=== PATIENT | female | born 1960 | race Caucasian/White ===

== ENCOUNTER 2023-02-18 08:00 | Day surgery (SDC) | payer OTHER, SELFPAY ==
--- NOTE | 2023-02-18 | PATH_ITS ---
[facility] Accession Number: [id number] No. of containers..01 Tissue . 01 Material submitted: . colon - TRANSVERSE COLON BIOPSY . 01 Diagnosis: Tranverse Colon, Biopsy: Tubular adenoma. [facility] 02/20/2023 1118 Local . 01 Electronically signed: . Nela Cheema MD, Pathologist NPI- [id number] . 01 Gross description: . TRANSVERSE COLON BIOPSY: Received in formalin is 1 fragment(s) of barrientos, soft tissue measuring 0.2 x 0.2 x 0.2 cm submitted entirely in 1 cassette(s) /ROLAN 02/19/2023 1925 Local . 01 Pathologist provided ICD-10: D12.3 . 01 CPT . 694623 Specimen Comment: A courtesy copy of this report has been sent to [phone] Performed at: 01 [facility] [address] [place] [address], [place], [place] [id number] MD Sav Sharma MD Phone: [phone]
[2023-02-18 08:52] VITALS: BP 120/71; PULSE 83; RESP 16; TEMP 36.4; O2SAT 99; BMI 30.4
[2023-02-18] MEDS: LACTATED RINGERS 1,000 ML 42 ML IV (09:02)
--- NOTE | 2023-02-18 09:08 | PM.HP.1 ---
History of Present Illness History of Present Illness Date Patient Seen: 02/18/23 Time Patient Seen: 09:08 Chief complaint: SDC Narrative: Positive Cologuard. No further upper symptoms since going on keto diet. Patient History Medical History Fibromyalgia Hypertension Hypothyroid Family & Social History Social History: household members spouse Tobacco & Substance use: Smoking Status Never smoker alcohol intake former Substance Use Type does not use Meds Home Medications and Allergies Home Medications Medication Instructions Recorded Confirmed Type levothyroxine 13 mcg capsule 13 mcg PO DAILY 02/18/23 02/18/23 History lisinopril 10 mg PO DAILY 02/18/23 02/18/23 History metformin 500 mg tablet 500 mg PO DAILY 02/18/23 02/18/23 History Allergies Allergy/AdvReac Type Severity Reaction Status Date / Time Penicillins AdvReac Mild Rash Verified 02/18/23 08:30 Review of Systems Review of Systems ROS: Yes All systems reviewed with the patient and are negative except as otherwise documented Exam Vital Signs (past 8 hours): - 02/18/23 08:52 Temperature 97.6 F Pulse Rate 83 Respiratory Rate 16 Blood Pressure 120/71 Pulse Oximetry 99 Oxygen Delivery Method Room Air Oxygen Delivery Method Room Air Const General: cooperative HENMT Head: normal to inspection Eyes General: appearance normal, both eyes and all related structures Neck Neck: normal visual inspection Chest Chest: normal inspection of the chest Resp Effort & Inspection: normal respiratory effort Cardio Rate: regular rate GI Inspection: normal to inspection Skin General: no rashes or lesions noted Neuro General: patient alert and patient awake Extrem General: normal to inspection and no pedal edema Psych Appearance: grossly normal Assessment & Plan Assessment & Plan narrative: 62-year-old with a positive Cologuard. Colonoscopy is pursued today.
--- NOTE | 2023-02-18 09:09 | PM.PREOP ---
Pre-operative Note Interval Note History & Physical reviewed/Exam performed by Physician: Yes Changes to H&P: No ASA Class (for procedural sedation): II
--- NOTE | 2023-02-18 10:03 | PM.OP.COLON ---
Operative Date/Time/Diagnoses Date of procedure: 02/18/23 Time of procedure: 10:04 Pre-op diagnosis: Positive Cologuard Post-op diagnosis: same Procedure & Clinicians Study performed: Colonoscopy with cold forceps polypectomy Same procedure as scheduled: Yes Indications: Positive Cologuard Surgeon: Ankur Rodriguez Procedure Notes SCOAP/Timeout: Done Procedure in detail: After the risks and benefits were explained, written and verbal informed consent was obtained. The patient was brought into the procedure room and placed into the left lateral decubitus position. Please see anesthesia notes for sedation details. Digital rectal examination was accomplished. The scope was introduced into the patient and advanced under direct visualization to the cecum as identified by the appendiceal orifice and ileocecal valve. The scope was slowly withdrawn to carefully examine the mucosa for any defects or lesions. Comprehensive imaging was accomplished throughout the rectum including the dentate line. The colon was decompressed, the scope was then removed from the patient who tolerated the procedure well. Adult colonoscope Bowel prep adequate Scope withdrawal time: 9 minutes Sedation minutes: 15 Complications: none Impression: There was a very diminutive polyp in the proximal transverse colon removed with cold forceps. No additional mucosal pathology was appreciated throughout. The terminal ileum was interrogated and appeared normal. Grade 1 to grade 2 internal hemorrhoids were noted on direct views. Endoscopic diagnosis 1. Diminutive colon polyp 2. Grade 1 to grade 2 hemorrhoids Post-procedure Plan for aftercare: 1. Await histopathology 2. If this polyp is returned with adenomatous features, repeat colonoscopy will be suggested for 7 years time. Disposition: PACU
[2023-02-18 10:07] VITALS: BP 102/53; PULSE 87; RESP 20; TEMP 36.4; O2SAT 100
[2023-02-18 10:12] VITALS: BP 110/69; PULSE 73; RESP 14; TEMP 36.4; O2SAT 100
[2023-02-18 10:17] VITALS: BP 103/64; PULSE 72; RESP 13; TEMP 36.2; O2SAT 100
== END 2023-02-18 10:35 | disposition home or self-care (01) ==
PROVIDERS: PCP Physician Assistant; Referring Provider Internal Medicine Gastroenterology; Visit Provider Internal Medicine Gastroenterology
PROC: 0DJD8ZZ Inspection of Lower Intestinal Tract, Via Natural or Artificial Opening Endoscopic (ICD-10-PCS; CPT 45378; principal; 2023-02-18 09:30)
DX: R19.5 Other fecal abnormalities (principal); Z12.11 Encounter for screening for malignant neoplasm of colon; K64.0 First degree hemorrhoids; D12.3 Benign neoplasm of transverse colon
CPT/HCPCS: 45380; J2704

== ENCOUNTER → 2024-04-24 12:24 | Outpatient (CLI) | payer OTHER, MEDICAID, SELFPAY | LOC: RESP 12:28 | PROVIDERS: PCP Nurse Practitioner Family; Referring Provider Nurse Practitioner Family; Visit Provider Nurse Practitioner Family | DX: Z01.818 Encounter for other preprocedural examination (principal) | CPT/HCPCS: 93005 ==

== ENCOUNTER → 2024-04-27 10:57 | Outpatient (CLI) | payer OTHER, MEDICAID, SELFPAY ==
[2024-04-27 12:19] LABS: Add Manual Diff / Slide Review NO; Basophils Absolute Auto 100 /uL (0-100); Basophils Percent Auto 0.9 % (0-2); Eosinophils Absolute Auto 200 /uL (0-450); Eosinophils Percent Auto 2.6 % (2-4); Hematocrit 35.2 % (36-46); Hemoglobin 11.9 g/dL (12.0-16.0); Lymphocytes Absolute Auto 1500 /uL (1100-4500); Lymphocytes Percent Auto 22.7 % (25-40); Mean Corpuscular HGB Conc 33.9 % (30-36); Mean Corpuscular Hemoglobin 30.2 PG (26-34); Mean Corpuscular Volume 89.1 fL (80-100); Monocytes Absolute Auto 400 /uL (0-900); Monocytes Percent Auto 6.4 % (3-14); Neutrophils Absolute Auto 4400 /uL (1500-7000); Neutrophils Percent Auto 67.4 % (50-75); Platelet Count 178 X10^3/uL (150-400); Red Blood Cell Count 3.95 X10^6/uL (4.0-5.2); Red Cell Distribution Width 13.7 % (11.6-14.8); White Blood Cell Count 6.5 X10^3/uL (4.5-11.0)
[2024-04-27 12:37] LABS: INR 0.9 (0.9-1.3); Prothrombin Time 10.5 SECONDS (9.4-12.5)
[2024-04-27 12:39] LABS: PTT Partial Thromboplastin Tim 36 SECONDS (25.1-36.5)
[2024-04-27 12:44] LABS: Alanine Aminotransferase 20 IU/L (<35); Albumin 4.4 g/dL (3.5-5.0); Albumin Globulin Ratio 1.5 (1.0-2.8); Alkaline Phosphatase 82 U/L (38-126); Aspartate Aminotransferase 29 IU/L (14-36); Bilirubin Total 0.4 mg/dL (0.2-1.3); Blood Urea Nitrogen 35 mg/dL (7-17); Calcium 9.2 mg/dL (8.4-10.2); Carbon Dioxide 24 mmol/L (22-32); Chloride 107 mmol/L (98-107); Estimated Glomerular Filt Rate > 60 mL/min (>60); Glucose 142 mg/dL (80-110); HEMOLYSIS 18 (0-50); Potassium 4.5 mmol/L (3.4-5.1); Sodium 137 mmol/L (137-145); Total Protein 7.4 g/dL (6.3-8.2)
== END ==
PROVIDERS: PCP Nurse Practitioner Family; Referring Provider Nurse Practitioner Family; Visit Provider Nurse Practitioner Family
DX: Z01.818 Encounter for other preprocedural examination (principal)
CPT/HCPCS: 36415; 80053; 85025; 85610; 85730

== ENCOUNTER 2024-05-08 09:56 | Day surgery (SDC) | payer OTHER, MEDICAID, SELFPAY ==
[2024-05-06 08:42] VITALS: BMI 30.7
[2024-05-08] VITALS (7 sets, daily range): BP systolic 118–134; BP diastolic 48–71; PULSE 76–84; RESP 12–16; TEMP 36.5–36.8; O2SAT 95–99; BMI 30.7
--- NOTE | 2024-05-08 | PATH_ITS ---
[facility] Accession Number: [id number] No. of containers..01 Tissue . 01 Material submitted: . endometrium - ENDOMETRIAL CONTENT . 01 Diagnosis: ENDOMETRIAL CONTENTS: Portions of benign endometrial tissue with features of cystic atrophy; negative for endometrioid intraepithelial neoplasia or malignancy. [facility] 05/13/2024 1131 Local . 01 Electronically signed: . Inés Campbell MD, Pathologist NPI- [id number] . 01 Gross description: . ENDOMETRIAL CONTENT: Received in formalin are minute fragments of mucoid and hemorrhagic material measuring 1.3 x 1.3 x 0.2 cm in aggregate. Submitted in toto in 1 cassette. /[facility]OL[facility] 05/11/2024 1935 Local . 01 Pathologist provided ICD-10: N85.00 . 01 CPT . 428739 Specimen Comment: A courtesy copy of this report has been sent to [facility] Performed at: [address] [facility] [address], [place], [place] [id number] MD Sav Sharma MD Phone: [phone]
[2024-05-08] MEDS: LACTATED RINGERS 1,000 ML 42 ML IV (10:23)
[2024-05-08] MEDS: ACETAMINOPHEN 325 MG TABLET 975 MG PO (10:24)
--- NOTE | 2024-05-08 10:24 | PM.PREOP ---
Pre-operative Note Interval Note History & Physical reviewed/Exam performed by Physician: Yes
--- NOTE | 2024-05-08 10:25 | PM.HP.1 ---
History of Present Illness History of Present Illness Date Patient Seen: 05/08/24 Time Patient Seen: 10:25 Chief complaint: [facility] Narrative: 63yo postmenopausal female presents for scheduled surgical procedure, hysteroscopy D&C for further evaluation of chronic postmenopausal bleeding. Pt late in arriving to procedure today secondary to caretaking needs for her horses. States she is very anxious in anticipation of procedure but otherwise feels fine. Denies acute changes in pmhx or pmb since time of office encounter 03/03/24 [facility] Medical History (Updated 04/17/24 @ 21:31 by Lashaun Armando) Diabetic retinopathy Cataracts, bilateral (~2021) Hiatal hernia Type 2 diabetes mellitus PMB (postmenopausal bleeding) Fibromyalgia (~1988) Hypertension Hypothyroid Surgical History (Updated 05/06/24 @ 08:48 by Marcia Bell RN) Hx of colonoscopy (02/18/23) Family History (Updated 04/17/24 @ 21:33 by Lashaun Armando) Mother Hypertension Social History household members: spouse Smoking Status: Never smoker alcohol intake: never Meds Home Medications and Allergies Home Medications Medication Instructions Recorded Confirmed Type levothyroxine 13 mcg capsule 13 mcg PO DAILY 02/18/23 05/08/24 History lisinopril 10 mg PO DAILY 02/18/23 05/08/24 History metformin 500 mg tablet 500 mg PO DAILY 02/18/23 05/08/24 History rosuvastatin 10 mg tablet 10 mg PO ONCE PM 03/03/24 05/08/24 History Allergies Allergy/AdvReac Type Severity Reaction Status Date / Time Penicillins AdvReac Mild Rash Verified 03/03/24 13:21 Review of Systems Review of Systems ROS: Yes All systems reviewed with the patient and are negative except as otherwise documented Exam Vital Signs (past 8 hours): - 05/08/24 10:13 Temperature 97.7 F Pulse Rate 76 Respiratory Rate 16 Blood Pressure 120/63 Pulse Oximetry 96 Oxygen Delivery Method Room Air Oxygen Delivery Method Room Air Const General: cooperative and comfortable Nutritional Appearance: overweight Orientation: alert, awake and oriented x3 Neck Neck: normal visual inspection Resp Effort & Inspection: normal respiratory effort Cardio Pulses: normal peripheral pulses GI Palpation: soft and no hepatosplenomegaly Other: deferred Skin General: no rashes or lesions noted Neuro General: patient alert, patient awake and patient oriented x3 Extrem General: normal to inspection Psych Appearance: grossly normal Mental Status: mental status grossly normal Speech and Movement: speech and movement normal Judgment: judgment good Assessment & Plan Assessment and plan (1) PMB (postmenopausal bleeding): Status: Acute Plan 63yo postmenopausal female presents for scheduled hysteroscopy with D&C for definitive surgical evaluation of acute on chronic postmenopausal bleeding No changes to H&P from time of last office encounter proceed to OR as scheduled
--- NOTE | 2024-05-08 10:28 | PM.PREOP ---
Pre-operative Note Interval Note History & Physical reviewed/Exam performed by Physician: Yes Changes to H&P: No ASA Class (for procedural sedation): III
--- NOTE | 2024-05-08 11:02 | SUR.OPER ---
Lithotomy on padded OR bed, head on pillow, arms secured on padded arm boards at <90 degrees abduction. Legs secured in padded yellow fins stirrups.
--- NOTE | 2024-05-08 11:15 | PM.OP.1 ---
Operative Date/Time/Diagnoses Date of procedure: 05/08/24 Time of procedure: 11:15 Pre-op diagnosis: postmenopausal bleeding Post-op diagnosis: same Procedure & Clinicians Procedure: exam under anesthesia, hysteroscopy, dilation and curettage Same procedure as scheduled: Yes Indications: postmenopausal bleeding Surgeon: Monica Najera Click Yes if Unassisted: Yes Anesthesia Type: General Operative Notes Findings: normal external female genitalia, vagina and cervix. Atrophic endometrial cavity with posterior polyp. Closure Type: not applicable Prosthetic devices, grafts, tissues, transplants, or devices: endometrial contents Estimated Blood Loss (mL): 0 Blood products transfused: none Procedure in detail: Pt was taken to the operating room, transferred to OR table and anesthesia was induced with placement of LMA.? Pt had her legs placed in Ismael stirrups and an exam under anesthesia was performed. The patient was prepped and draped in a sterile fashion.? A time out was performed. ?The bladder was emptied via straight catheter in sterile fashion.? A sterile speculum was inserted into the vagina.? The cervix was visualized and grasped anteriorly using a single tooth tenaculum.? The uterus sounded to 7 cm and the cervical os was serially dilated using Yoon dilators up to 17f to allow for passage of the hysteroscope.? The 5mm 0 degree hysteroscope was then inserted into the uterus with findings as noted.? The hysteroscope was removed and the Myosure device was introduced and the endometrium including visualized pathology was fractionally resected under direct visualization. The tenaculum was removed and hemostasis was noted at insertion sites.? The speculum was removed and hemostasis was again noted to be excellent.? The patient then had her legs taken out of stirrups.? The patient tolerated the procedure well and without difficulty.? The patient was awakened from anesthesia and taken to PACU in stable condition. Post-operative Condition: stable Disposition: PACU
== END 2024-05-08 12:23 | disposition home or self-care (01) ==
PROVIDERS: PCP Nurse Practitioner Family; Referring Provider Obstetrics & Gynecology; Visit Provider Obstetrics & Gynecology
PROC: 0UDB8ZZ Extraction of Endometrium, Via Natural or Artificial Opening Endoscopic (ICD-10-PCS; CPT 58558; principal; 2024-05-08 10:30)
DX: N95.0 Postmenopausal bleeding (principal); N84.0 Polyp of corpus uteri; N95.2 Postmenopausal atrophic vaginitis
CPT/HCPCS: 58558; 82962; J1100; J1885; J2250; J2405; J2704; J3010

== ENCOUNTER → 2025-07-07 15:22 | Outpatient (CLI) | payer OTHER, SELFPAY ==
[2025-07-07 15:46] LABS: Add Manual Diff / Slide Review NO; Hematocrit 33.8 % (36-46); Hemoglobin 11.4 g/dL (12.0-16.0); Lymphocytes Absolute Auto 1700 /uL (1100-4500); Mean Corpuscular HGB Conc 33.7 % (30-36); Mean Corpuscular Hemoglobin 30.0 PG (26-34); Mean Corpuscular Volume 88.9 fL (80-100); Platelet Count 188 X10^3/uL (150-400)
[2025-07-07 16:17] LABS: Hemoglobin A1C% w Est Avg Glu 8.8 % (4.0-6.0)
[2025-07-07 17:03] LABS: Alanine Aminotransferase 16 IU/L (<35); Albumin 4.6 g/dL (3.5-5.0); Albumin Globulin Ratio 1.6 (1.0-2.8); Alkaline Phosphatase 76 U/L (38-126); Blood Urea Nitrogen 24 mg/dL (7-17); Calcium 9.9 mg/dL (8.4-10.2); Carbon Dioxide 23 mmol/L (22-32); Chloride 100 mmol/L (98-107); Cholesterol 198 mg/dL (140-199); Estimated Glomerular Filt Rate > 60 mL/min (>60); Globulin 2.9 g/dL (1.7-4.1); Glucose 164 mg/dL (70-99); HDL Cholesterol 84 mg/dL (40-60); HEMOLYSIS < 15 (0-50); Potassium 4.7 mmol/L (3.4-5.1); Sodium 135 mmol/L (137-145); Total Protein 7.5 g/dL (6.3-8.2); Triglycerides 142 mg/dL (35-150)
[2025-07-07 17:29] LABS: TSH w/ Reflex to FT4 1.71 uIU/mL (0.47-4.68)
== END ==
PROVIDERS: PCP Family Medicine; Referring Provider Family Medicine; Visit Provider Family Medicine
DX: E11.319 Type 2 diabetes mellitus with unspecified diabetic retinopathy without macular edema (principal); H26.9 Unspecified cataract; K44.9 Diaphragmatic hernia without obstruction or gangrene; E11.69 Type 2 diabetes mellitus with other specified complication; M79.7 Fibromyalgia; E03.9 Hypothyroidism, unspecified; I10 Essential (primary) hypertension
CPT/HCPCS: 80053; 80061; 83036; 84443; 85025